=== PATIENT | male | born 1955 | race Caucasian/White ===

== ENCOUNTER 2023-01-11 16:14 | Observation (INO) | payer MEDICARE, MEDICAID ==
[~2023-01-11] VITALS: Ht 167.7 cm; Wt 77.2 kg
--- NOTE | 2023-01-11 16:35 | ED Fall/Injury ---
General Stated Complaint: FALL,CHEST PAIN,L HIP PAIN Source: patient, EMS Exam Limitations: no limitations History of Present Illness Date Seen by Provider: Jan 11, 2023 Time Seen by Provider: 16:18 Initial Comments 67-year-old male with past medical history most notable for diabetes coming in via EMS after he was just discharged from the senior living, had a split-second of chest pain making him fall down, landed on his left hip and since has had left hip pain. Did not hit his head, did not pass out, does not take blood thinners, no neck pain. Denies any weakness or numbness. Otherwise denying any other acute complaints. Denies any history of heart attack or stents in his heart, no DVT or PE history, no lower extremity swelling or pain, no recent surgery. Allergies and Home Medications Allergies Coded Allergies: No Known Drug Allergies (Unverified , 01/11/23) Patient Home Medication List Home Medication List Reviewed: Yes Review of Systems Review of Systems Constitutional: No fever Eyes: No Symptoms Reported Ears, Nose, Mouth, Throat: no symptoms reported Respiratory: no symptoms reported Cardiovascular: see HPI Gastrointestinal: no symptoms reported Genitourinary: no symptoms reported Musculoskeletal: see HPI Skin: no symptoms reported Psychiatric/Neurological: No Symptoms Reported Past Zlrgykx-Ppkitu-Mtlrrr Hx Patient Social History Tobacco Use?: No Substance use?: No Alcohol Use?: No Past Medical History Surgeries: Yes Orthopedic Physical Exam Vital Signs Vital Signs - First Documented 01/11/23 16:20 Temp 35.8 Pulse 74 Resp 16 B/P (MAP) 152/74 (100) Pulse Ox 97 O2 Delivery Room Air Capillary Refill : Height, Weight, BMI Height: '" Weight: lbs. oz. kg; BMI Method: General Appearance: WD/WN, no apparent distress HEENT: PERRL/EOMI, normal ENT inspection, pharynx normal Neck: non-tender, full range of motion, supple, normal inspection Cardiovascular: regular rate, rhythm, no edema, no murmur Respiratory: chest non-tender, lungs clear, normal breath sounds, no re spiratory distress, no accessory muscle use Gastrointestinal: normal bowel sounds, non tender, soft; No distended, No guarding, No rebound Back: normal inspection, no CVA tenderness, no vertebral tenderness Extremities: normal range of motion, normal inspection, no pedal edema, no calf tenderness, normal capillary refill, other (Lateral left hip pain to deep palpation) Neurologic/Psychiatric: no motor/sensory deficits, alert, normal mood/affect, oriented x 3 Skin: normal color, warm/dry Tylor Coma Score Best Eye Response: (4) Open Spontaneously Best Verbal Response: (5) Oriented Best Motor Response: (6) Obeys Commands Progress/Results/Core Measures Results/Orders Lab Results Laboratory Tests Test 01/11/23 16:21 01/11/23 16:29 Range/Units White Blood Count 10.7 4.3-11.0 10^3/uL Red Blood Count 4.60 4.30-5.52 10^6/uL Hemoglobin 12.1 L 13.3-17.7 g/dL Hematocrit 37 L 40-54 % Mean Corpuscular Volume 81 80-99 fL Mean Corpuscular Hemoglobin 26 25-34 pg Mean Corpuscular Hemoglobin Concent 33 32-36 g/dL Red Cell Distribution Width 15.2 H 10.0-14.5 % Platelet Count 441 H 130-400 10^3/uL Mean Platelet Volume 8.5 L 9.0-12.2 fL Immature Granulocyte % (Auto) 0 % Neutrophils (%) (Auto) 53 42-75 % Lymphocytes (%) (Auto) 30 12-44 % Monocytes (%) (Auto) 7 0-12 % Eosinophils (%) (Auto) 9 0-10 % Basophils (%) (Auto) 1 0-10 % Neutrophils # (Auto) 5.7 1.8-7.8 10^3/uL Lymphocytes # (Auto) 3.2 1.0-4.0 10^3/uL Monocytes # (Auto) 0.8 0.0-1.0 10^3/uL Eosinophils # (Auto) 1.0 H 0.0-0.3 10^3/uL Basophils # (Auto) 0.1 0.0-0.1 10^3/uL Immature Granulocyte # (Auto) 0.0 0.0-0.1 10^3/uL Prothrombin Time 13.7 12.2-14.7 SEC INR Comment 1.0 0.8-1.4 Activated Partial Thromboplast Time 27 24-35 SEC Sodium Level 134 L 135-145 MMOL/L Potassium Level 3.8 3.6-5.0 MMOL/L Chloride Level 98 98-107 MMOL/L Carbon Dioxide Level 24 21-32 MMOL/L Anion Gap 12 5-14 MMOL/L Blood Urea Nitrogen 16 7-18 MG/DL Creatinine 0.66 0.60-1.30 MG/DL Estimat Glomerular Filtration Rate 104 BUN/Creatinine Ratio 24 Glucose Level 265 H 70-105 MG/DL Calcium Level 9.3 8.5-10.1 MG/DL Corrected Calcium 9.9 8.5-10.1 MG/DL Magnesium Level 1.8 1.6-2.4 MG/DL Total Bilirubin 0.2 0.1-1.0 MG/DL Aspartate Amino Transf (AST/SGOT) 18 5-34 U/L Alanine Aminotransferase (ALT/SGPT) 31 0-55 U/L Alkaline Phosphatase 126 40-136 U/L Troponin I < 0.30 <0.30 NG/ML Pro-B-Type Natriuretic Peptide 1741.0 H <125.0 PG/ML Total Protein 7.2 6.4-8.2 GM/DL Albumin 3.2 3.2-4.5 GM/DL Glucometer 239 H 70-110 MG/DL My Orders Orders - CINDI BENJAMIN MD Chest 1 View Ap/Pa Only (01/11/23 16:31) Pelvis With Left Hip 2-3 View (01/11/23 16:31) Cbc With Automated Diff (01/11/23 16:31) Magnesium (01/11/23 16:31) Ekg Tracing (01/11/23 16:31) Comprehensive Metabolic Panel (01/11/23 16:31) Protime With Inr (01/11/23 16:31) Partial Thromboplastin Time (01/11/23 16:31) O2 (01/11/23 16:31) Monitor-Rhythm Ecg Trace Only (01/11/23 16:31) Ed Iv/Invasive Line Start (01/11/23 16:31) Troponin I Fs (01/11/23 16:31) Probnp Fs (01/11/23 16:31) Accucheck Stat ONCE (01/11/23 16:31) Ct Chest Wo (01/11/23 17:05) Ceftriaxone Iv/Im (Rocephin Iv/Im) (01/11/23 18:00) Doxycycline Hyclate Tablet (Vibramycin T (01/11/23 17:47) Vital Signs/I&O 01/11/23 16:20 Temp 35.8 Pulse 74 Resp 16 B/P (MAP) 152/74 (100) Pulse Ox 97 O2 Delivery Room Air Progress Progress Note : Progress Note 67-year-old male with above history coming in due to chest pain, subsequently having a fall and landing on his left side with left hip pain. ABCs were intact and vitals were stable on presentation. Physical exam with left hip lateral tenderness. EKG ordered and interpreted by me showing no STEMI. Chest x-ray with obvious right-sided pleural effusion and likely pneumothorax. CT scan then obtained on my interpretation has an obvious hydropneumothorax that is moderate. The pneumothorax portion of it is very mild. Would not need a chest tube at this time. He is not on oxygen. Basic labs obtained, white blood cell count normal, troponin negative, BNP elevated, creatinine normal. He was given ceftriaxone and doxycycline because of the likely infiltrate as well on CT scan. I am concerned that the patient is homeless, does not have transportation, and does not really have a phone if he were to worsen. Specifically, if his pneumothorax were to expand and he were to worsen, I would want him to be in a monitored setting since he does not have the ability to follow-up rapidly with anybody. I contacted Dr. Flores who will admit the patient under observation status. I then contacted Dr. VENEGAS for consultation if the patient were to worsen. Initial ECG Impression Date: Jan 11, 2023 Initial ECG Impression Time: 16:21 Initial ECG Rate: 73 Initial ECG Rhythm: Normal Sinus Comment Narrow QRS, normal axis, no significant ST changes, T wave inversions in the lateral leads which is nonspecific, no prior EKG to compare to Diagnostic Imaging Diagonstic Imaging: Xray (chest, pelvis, left hip), CT (CT chest) Comments [facility], [place] NAME: MIREILLE HUNT [facility] REC#: [id number] PT STATUS: REG ER : 1955 PHYSICIAN: CINDI BENJAMIN MD ADMIT DATE: 01/11/23/ER FS Draft Date of Exam:01/11/23 CHEST 1 VIEW AP/PA ONLY INDICATION: Chest pain with fall. TECHNIQUE: Single view chest, 4:44 p.m. CORRELATION STUDY: None. FINDINGS: Heart size is enlarged. Vascularity is slightly prominent. There is asymmetric dghfx-en-bplrqibl effusion at the right lung base along with atelectasis, infiltrate, and/or edema. Findings are positive for small right apical pneumothorax. IMPRESSION: 1. Nzahw-ox-cclogxgl right pleural effusion with small right apical pneumothorax. Given history, may very well be post-traumatic. Definitive displaced rib fracture is not demonstrated. If further assessment is desired, CT chest would be recommended. Likely associated atelectasis, infiltrate, and/or edema or perhaps contusion in the right lung base. CRITICAL FINDINGS Telephone call to the emergency department, Dr. Benjamin, at 5:02 p.m. Dictated on workstation # [id number] Dict: 01/11/23 165 Trans: 01/11/231714 [id number] Interpreted by: NILE YANG DO Electronically signed by: [facility] [place] [place] [facility] [id number] PT STATUS: REG ER : 1955 PHYSICIAN: CINDI BENJAMIN MD ADMIT DATE: 01/11/23/ER FS Signed Date of Exam:01/11/23 PELVIS WITH LEFT HIP 2-3 VIEW EXAMINATION: Left hip unilateral 2 or 3 views (w/pelvis when done) HISTORY: Hip injury COMPARISON: None available. FINDINGS: There is a right femur intramedullary nail. There are vascular calcifications bilaterally. No fracture. Alignment is normal. 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 IMPRESSION: 1. No fracture. Dictated by: Dictated on workstation # [id number] Dict: 01/11/23 170 Trans: 01/11/231712 [facility] [id number] Interpreted by: CHRISTIAN DERAS MD Electronically signed by: CHRISTIAN DERAS MD 01/11/231712 [facility] [place] [place] [facility] [id number] PT STATUS: REG ER : 1955 PHYSICIAN: CINDI BENJAMIN MD ADMIT DATE: 01/11/23/ER FS Draft Date of Exam:01/11/23 CT CHEST WO PROCEDURE: CT chest without contrast. TECHNIQUE: Multiple contiguous axial images were obtained through the chest without the use of intravenous contrast. Auto Exposure Controls were utilized during the CT exam to meet ALARA standards for radiation dose reduction. INDICATION: Pneumothorax, pain. COMPARISON: Radiographs from the same date. FINDINGS: Several calcified mediastinal and hilar lymph nodes are present. This includes a precarinal lymph node which is mildly enlarged measuring 1.3 cm in short dimension. No additional adenopathy identified within the chest. Scattered vascular calcifications, including advanced calcifications versus stents within the coronary arteries. The heart is within normal limits in size. No significant pericardial effusion. No left-sided pleural effusion. Moderate right-sided dependently layering pleural effusion is present with associated adjacent atelectasis and consolidation, particularly within the right lower lobe. Small right-sided pneumothorax is noted, particularly anteriorly. No left-sided pneumothorax. Calcified granuloma within the right upper lobe. 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 Calcified splenic granuloma. Small duodenal diverticulum. Chronic left-sided rib fracture. Scattered osseous degenerative changes without acute osseous abnormality. In particular, no definite acute displaced right-sided rib fracture. IMPRESSION: Moderate right-sided hydropneumothorax, with this predominantly being fluid with a small gas component present. This is associated with adjacent atelectasis and potentially infiltrate within the right lower lobe. Scattered degenerative changes without definite acute osseous abnormality. Porcelain gallbladder incidentally noted. Evidence of chronic granulomatous disease. This includes a precarinal lymph node which is mildly enlarged. Dictated on workstation # [id number] Dict: 01/11/23 1725 Trans: 01/11/23 1734 [facility] [id number] Interpreted by: GRACIE NEVAREZ MD Electronically signed by: Departure Impression Primary Impression: Hydropneumothorax Additional Impression: Pneumonia Qualified Codes: J18.9 - Pneumonia, unspecified organism Disposition: 30 STILL A PATIENT Condition: Stable Admissions Decision to Admit Reason: Admit from ER (General) Decision to Admit/Date: Jan 11, 2023 Time/Decision to Admit Time: 17:55 Transfer Transfer Facility: [facility] Method of Transfer: EMS CINDI BENJAMIN MD Jan 11, 2023 16:35
[2023-01-11 16:39] LABS: BASOPHILS # (AUTO) 0.1 10^3/uL (0.0-0.1); BASOPHILS % (AUTO) 1 % (0-10); EOSINOPHILS % (AUTO) 9 % (0-10); HEMATOCRIT 37 % (40-54); HEMOGLOBIN 12.1 g/dL (13.3-17.7); LYMPHOCYTES # (AUTO) 3.2 10^3/uL (1.0-4.0); LYMPHOCYTES % (AUTO) 30 % (12-44); MEAN CORPUSCULAR HEMOGLOBIN 26 pg (25-34); MEAN CORPUSCULAR HGB CONC 33 g/dL (32-36); MEAN CORPUSCULAR VOLUME 81 fL (80-99); MEAN PLATELET VOLUME 8.5 fL (9.0-12.2); MONOCYTES # (AUTO) 0.8 10^3/uL (0.0-1.0); MONOCYTES % (AUTO) 7 % (0-12); NEUTROPHILS # (AUTO) 5.7 10^3/uL (1.8-7.8); NEUTROPHILS % (AUTO) 53 % (42-75); PLATELET COUNT 441 10^3/uL (130-400); WHITE BLOOD COUNT 10.7 10^3/uL (4.3-11.0)
[2023-01-11 16:53] LABS: PROTHROMBIN TIME PATIENT 13.7 SEC (12.2-14.7)
[2023-01-11 17:02] LABS: ALANINE AMINOTRANSFERASE 31 U/L (0-55); ALKALINE PHOSPHATASE 126 U/L (40-136); BILIRUBIN,TOTAL 0.2 MG/DL (0.1-1.0); BUN/CREATININE RATIO 24; CALCIUM 9.3 MG/DL (8.5-10.1); CARBON DIOXIDE 24 MMOL/L (21-32); CHLORIDE 98 MMOL/L (98-107); CREATININE SERUM 0.66 MG/DL (0.60-1.30); GFR ESTIMATED 104; GLUCOSE 265 MG/DL (70-105); MAGNESIUM 1.8 MG/DL (1.6-2.4); POTASSIUM 3.8 MMOL/L (3.6-5.0); SODIUM 134 MMOL/L (135-145)
[2023-01-11 17:03] LABS: ALBUMIN 3.2 GM/DL (3.2-4.5); TOTAL PROTEIN 7.2 GM/DL (6.4-8.2)
--- NOTE | 2023-01-11 17:04 | Diagnostic Imaging Report ---
EXAMINATION: Left hip unilateral 2 or 3 views (w/pelvis when done) HISTORY: Hip injury COMPARISON: None available. FINDINGS: There is a right femur intramedullary nail. There are vascular calcifications bilaterally. No fracture. Alignment is normal. 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 IMPRESSION: 1. No fracture. Dictated by: Dictated on workstation # [id number]
--- NOTE | 2023-01-11 17:16 | Diagnostic Imaging Report ---
INDICATION: Chest pain with fall. TECHNIQUE: Single view chest, 4:44 p.m. CORRELATION STUDY: None. FINDINGS: Heart size is enlarged. Vascularity is slightly prominent. There is asymmetric jjihv-nf-vniuovxq effusion at the right lung base along with atelectasis, infiltrate, and/or edema. Findings are positive for small right apical pneumothorax. IMPRESSION: 1. Uoypc-ch-jhctdjcr right pleural effusion with small right apical pneumothorax. Given history, may very well be post-traumatic. Definitive displaced rib fracture is not demonstrated. If further assessment is desired, CT chest would be recommended. Likely associated atelectasis, infiltrate, and/or edema or perhaps contusion in the right lung base. CRITICAL FINDINGS Telephone call to the emergency department, Dr. Christie, at 5:02 p.m. Dictated by: Dictated on workstation # [id number]
--- NOTE | 2023-01-11 17:34 | Diagnostic Imaging Report ---
PROCEDURE: CT chest without contrast. TECHNIQUE: Multiple contiguous axial images were obtained through the chest without the use of intravenous contrast. Auto Exposure Controls were utilized during the CT exam to meet ALARA standards for radiation dose reduction. INDICATION: Pneumothorax, pain. COMPARISON: Radiographs from the same date. FINDINGS: Several calcified mediastinal and hilar lymph nodes are present. This includes a precarinal lymph node which is mildly enlarged measuring 1.3 cm in short dimension. No additional adenopathy identified within the chest. Scattered vascular calcifications, including advanced calcifications versus stents within the coronary arteries. The heart is within normal limits in size. No significant pericardial effusion. No left-sided pleural effusion. Moderate right-sided dependently layering pleural effusion is present with associated adjacent atelectasis and consolidation, particularly within the right lower lobe. Small right-sided pneumothorax is noted, particularly anteriorly. No left-sided pneumothorax. Calcified granuloma within the right upper lobe. 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 Calcified splenic granuloma. Small duodenal diverticulum. Chronic left-sided rib fracture. Scattered osseous degenerative changes without acute osseous abnormality. In particular, no definite acute displaced right-sided rib fracture. IMPRESSION: Moderate right-sided hydropneumothorax, with this predominantly being fluid with a small gas component present. This is associated with adjacent atelectasis and potentially infiltrate within the right lower lobe. Scattered degenerative changes without definite acute osseous abnormality. Porcelain gallbladder incidentally noted. Evidence of chronic granulomatous disease. This includes a precarinal lymph node which is mildly enlarged. Dictated by: Dictated on workstation # [id number]
[2023-01-11] MEDS ORDERED: DOXYCYCLINE 100 MG (VIBRAMYCIN) TABLET PO STA (17:47)
[2023-01-11] MEDS ORDERED: cefTRIAXone IV/IM 1,000 MG in NS (IVPB) 50 ML IV ONE (18:00)
[2023-01-11 19:42] VITALS: BP 193/93
[2023-01-11 21:01] VITALS: BP 152/74
[2023-01-11] MEDS ORDERED: RT-ALBUTEROL/IPRATROPIUM 3 ML (DUONEB) VIAL INH PRN (21:15)
[2023-01-11 22:00] VITALS: BP 160/94
[2023-01-11 23:21] VITALS: BP 141/65
[2023-01-11] MEDS ORDERED: ONDANSETRON 4 MG/2 ML (SDV) Z0FRAN IV PRN (23:45)
[2023-01-11] MEDS ORDERED: ACETAMINOPHEN 500 MG TAB (TYLENOL) PO PRN (23:45)
[2023-01-12 03:18] VITALS: BP 123/59
[2023-01-12] MEDS: CATHETER FLUSH 10 ML SYR IVP SCH ×3 (05:32→20:00)
[2023-01-12] MEDS: inSUlin ASPART (NovoLOG) 1 UNIT/0.01 ML (CHARGE PER UNIT) SC SCH ×4 (05:32→20:00)
[2023-01-12] MEDS: DOXYCYCLINE 100 MG (VIBRAMYCIN) TABLET PO SCH ×2 (05:35→17:17)
[2023-01-12 07:45] VITALS: BP 134/78
[2023-01-12] MEDS: lisINopril 20 MG (PRINIVIL) TABLET PO SCH (07:50)
--- NOTE | 2023-01-12 08:53 | Diagnostic Imaging Report ---
INDICATION: History of hydropneumothorax. COMPARISON: 01/11/2023 FINDINGS: Single frontal radiographic view of the chest was obtained and again demonstrates small right-sided hydropneumothorax. This appears stable compared to prior exam. Right basilar airspace disease persists. There is suggestion of 2.1 cm nodular opacity within the right base as well. Left lung remains clear. There is no large effusion or pneumothorax on the left. Cardiac silhouette and pulmonary vasculature are within normal limits. Osseous structures show no acute adverse interval changes. IMPRESSION: 1. Redemonstration with mild right-sided hydropneumothorax. 2. Bibasilar atelectasis and/or infiltrate. Additionally, there is 2.1 cm nodular opacity which may be on the basis of area of rounded atelectasis or pneumonia. Followup to resolution however is advised, as soft tissue nodule cannot be excluded. Dictated by: Dictated on workstation # [id number]
[2023-01-12] MEDS ORDERED: CEFD300C3 PO (11:05)
[2023-01-12] MEDS ORDERED: INSU100I48 SC (11:05)
[2023-01-12] MEDS ORDERED: INSU100I10 SC (11:05)
[2023-01-12] MEDS ORDERED: TMSL.4C PO (11:05)
[2023-01-12] MEDS ORDERED: CITA10TA9 PO (11:05)
[2023-01-12] MEDS ORDERED: DOXY-444 PO (11:05)
[2023-01-12] MEDS ORDERED: LISI20TA26 PO (11:05)
[2023-01-12] MEDS ORDERED: CARV6.252 PO (11:05)
[2023-01-12 11:51] VITALS: BP 136/66
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
--- NOTE | 2023-01-12 13:55 | Occ Therapy Progress Note ---
Therapy Progress Note Patient refused therapy and cursed OT out of the room. OT will attempt tomorrow. ENIO CARR OT Jan 12, 2023 13:55
--- NOTE | 2023-01-12 14:10 | Physical Therapy Evaluation ---
PT Evaluation-General Medical Diagnosis Admission Date Jan 11, 2023 at 19:23 Medical Diagnosis: fall/chest pain/left hip pain Onset Date: Jan 11, 2023 Therapy Diagnosis Therapy Diagnosis: debility Precautions Precautions/Isolations: Standard Precautions Referral Physician: Mark Reason for Referral: Evaluation/Treatment Medical History Pertinent Medical History: DM Additional Medical History bilateral toe amputations Current History EMS after being released from [facility]term and had a "split second" onset of chest pain and fell to the ground Social History Home: Current Living Status: Homeless (per report) Prior Prior Level of Function SCALE: Activities may be completed with or without assistive devices. 6-Dbcdgczynh-eichxig completes the activity by him/herself with no assistance from a helper. 5-Set-up or Clean-up Assistance-helper sets up or cleans up; patient completes activity. [place] assists only prior to or following the activity. 4-Supervision or Touching Assistance-helper provides verbal cues and/or touching/steadying and/or contact guard assistance as patient completes activity. Assistance may be provided throughout the activity or intermittently. 3-Partial/Moderate Assistance-helper does LESS THAN HALF the effort. [place] lifts, holds or supports trunk or limbs, but provides less than half the effort. 2-Substantial/Maximal Assistance-helper does MORE THAN HALF the effort. [place] lifts or holds trunk or limbs and provides more than half the effort. 8-Fqscedzjf-fwxedf does ALL the effort. Patient does none of the effort to complete the activity. Or, the assistance of 2 or more helpers is required for the patient to complete the activity. If activity was not attempted, code reason: 7-Patient Refused. 9-Not Applicable-not attempted and the patient did not perform the activity before the current illness, exacerbation or injury. 10-Not Attempted due to Environmental Limitations-(lack of equipment, weather restraints, etc.). 88-Not Attempted due to Medical Conditions or Safety Concerns. Bed Mobility: 6 Transfers (B,C,W/C): 6 Gait: 6 Indoor Mobility (Ambulation): Independent Prior Devices Use: Other-see list below Prior Device Use: cane PT Evaluation-Current Subjective Patient agrees to PT. Objective Patient Orientation: Normal For Age ROM/Strength ROM Lower Extremities bilateral LE WFL Strength Lower Extremities bilateral LE WFL Integumentary/Posture Bowel Incontinence: No Bladder Incontinence: No Posture WFL Neuromuscular (Tone, Coordination, Reflexes) grossly intact Sensory Vision: Functional Hearing: Functional Transfers Sit to Lying (QC): 6 Lying to Sitting/Side of Bed(Q: 6 Sit to Stand (QC): 6 Gait Mode of Locomotion: Walk Anticipated Mode of Locomotion: Walk Walk 10 feet (QC): 5 Walk 50 ft with 2 Turns(QC): 5 Walk 150 ft (QC): 5 Distance: >300' Gait Assistive Device: FWW Comments/Gait Description safe and functional with no deviation Balance Sitting Static: Normal Sitting Dynamic: Normal Standing Static: Normal Standing Dynamic: Normal Assessment/Needs Patient is currently at [facility] with all gross motor skills and does not require skilled PT intervention at this time. Rehab Potential: Fair PT Plan Treatment/Plan Treatment Plan: Discontinue PT Treatment Duration: Jan 12, 2023 Frequency: 1 time per week Estimated Hrs Per Day: .25 hour per day Time Time In: 1245 Time Out: 1300 DATE: Jan 12, 2023 Total Billed Treatment Time: 15 Total Billed Treatment 1 visit [facility] 15 min JIA JACKSON PT Jan 12, 2023 14:10
[2023-01-12 15:14] VITALS: BP 151/76
--- NOTE | 2023-01-12 17:47 | CONSULTATION REPORT ---
DATE OF SERVICE: 01/12/2023 ADMITTING PHYSICIAN: Dr. Kendra Flores. HISTORY OF PRESENT ILLNESS: The patient is a 67-year-old male who is somewhat of a poor historian; however, a good amount of the information was accrued on history and physical today. He states that he was recently in residential for approximately 1.5 weeks for unknown reasons and once released, he lost balance and fell on his left side with chief complaint being left hip pain. He was seen at [facility] emergency department where radiographic imaging was done and there was no fracture. The patient was found to have some consolidation of the lung consistent with pneumonia, but also a hydropneumothorax on the right side of unknown etiology. This appears to be small. Follow up with chest x-ray was done this morning, which did not show any changes. Upon further questioning, he reports that before this admission, he had also fallen at home due to loss of balance several times and this may have been a direct result of this. He also states again that before this admission, he did have other issues and was seen at [facility] and found to have necrotic toes as well as peripheral vascular disease and [facility] [place] and underwent amputation of left first and second toe as well as amputation of the right third toe. He also states he underwent aortogram with bilateral runoff and underwent angioplasty and stent placement of the left lower extremity. He is currently receiving IV antibiotics for the pneumonia and for monitoring the small hydropneumothorax on the right side. 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 The patient reports that he has had some issues with pain in the right upper abdominal quadrant as well as intermittent episodes of nausea and vomiting after eating meals. He is also weak and likely will need some form of inpatient rehabilitation as well. PAST MEDICAL HISTORY: Hypertension, hypercholesterolemia, diabetes, peripheral vascular disease, degenerative joint disease. PAST SURGICAL HISTORY: Right partial hip arthroplasty, aortogram with left lower extremity angioplasty and stent placement, amputation left toes 1 and 2 and amputation of toe 3 of the right foot. ALLERGIES: NO KNOWN DRUG ALLERGIES. MEDICATIONS: Carvedilol 6.25 mg b.i.d., cefdinir 300 mg b.i.d., citalopram 10 mg daily, doxycycline 100 mg b.i.d., glargine insulin 35 units each day at bedtime, lispro insulin 10 units q.a.c., lisinopril 20 mg daily, tamsulosin 0.4 mg daily. SOCIAL HISTORY: Previous smoke, quit several weeks ago, 40 pack years, negative alcohol. FAMILY HISTORY: Noncontributory. VITAL SIGNS: Temperature 36.5, blood pressure 151/76, pulse 60, respirations 18, pulse ox 94% on room air. REVIEW OF SYSTEMS: This is well-nourished male, currently in no acute distress. He is not experiencing any shortness of breath or difficulty in breathing. No chest pain, palpitations, diaphoresis. Intermittent episodes of nausea and vomiting after some types of foods that he eats with pain in the right upper abdominal quadrant. Does not report any issues with diarrhea, nor constipation as well as no red blood per rectum, nor any dark tarry stools. No fever, chills, no recent inadvertent weight loss. All other review of systems negative. PHYSICAL EXAMINATION: CHEST: Decreased breath sounds, right lung base with scattered wheezes and rhonchi bilaterally. HEART: Regular. No murmurs. EXTREMITIES: No lower extremity edema. Negative Homans sign with surgical amputation of toes 1 and 2 on the left and third toe on the right. HEENT: No scleral icterus. No cervical lymphadenopathy. ABDOMEN: Soft, nontender, nondistended. SKIN: Warm, dry. LABORATORY DATA: WBC 10.7, hemoglobin 12.1, hematocrit 37, platelets 441, BUN 16, creatinine 0.66. ROS and PE: A 67-year-old male with multiple medical problems that have gone untreated due to what appears to be some psychosocial issues. He does have hypertension, hypercholesterolemia, and insulin-dependent diabetes and also does have significant peripheral vascular disease and possibly coronary artery disease. The patient has had issues with balance and ambulation and has had multiple falls recently. On radiographic imaging, he did not have any fractures of his hip; however, was found to have a small hydropneumothorax on the right side, which on followup x-ray did not show any changes. At this time, he does not report any shortness of breath. Assesment/Plan: CT scan of the chest also was consistent with pneumonia. Diagnostic imaging also did show what appeared to be a porcelain gallbladder consistent with a chronic calculous cholecystitis. He does have some previous symptomatology from this. At this time, the patient also appears to be homeless. The care of this patient will likely need to be multidisciplinary. He will need to continue to be on antibiotics for the pneumonia as well as to allow for healing of the previous amputated toes. The patient will also need to increase strength and gait training with physical therapy as well as occupational therapy and may need inpatient rehabilitation as well. He does have what appears to be a chronic hydropneumothorax however, this is probably could have been several months ago. At this time, he is stable and we would only place a chest tube or drainage procedure if the effusion did increase over the size causing further compression of the lung and worsening shortness of breath. The patient also does have a chronic calculous cholecystitis and has been symptomatic in the past and if he continues to be symptomatic, which impedes with his eating and nutritional status, we would recommend a laparoscopic cholecystectomy. For now, we will just continue with antibiotics and medical management and continue to follow serial chest x-rays. Job ID: [id number] DocumentID: [id number] Dictated Date: 01/12/2023 16:59:48 Concrete Saw Operator Date: 01/12/2023 17:44:00 Dictated By: BRIAN VENEGAS MD MTDD
[2023-01-12] MEDS ORDERED: cefTRIAXone 1 GM/NS 50 ML IVPB IV SCH ×2 (18:00)
[2023-01-12 19:29] VITALS: BP 145/75
[2023-01-12] MEDS: CEFDINIR 300 MG (OMNICEF) CAP PO SCH (20:00)
[2023-01-12 23:13] VITALS: BP 102/54
[2023-01-13 03:32] VITALS: BP 131/73
[2023-01-13] MEDS: inSUlin ASPART (NovoLOG) 1 UNIT/0.01 ML (CHARGE PER UNIT) SC SCH ×4 (05:30→20:41)
[2023-01-13] MEDS: DOXYCYCLINE 100 MG (VIBRAMYCIN) TABLET PO SCH ×2 (05:33→17:10)
[2023-01-13] MEDS: CATHETER FLUSH 10 ML SYR IVP SCH ×3 (05:34→20:41)
[2023-01-13 07:56] VITALS: BP 179/85
--- NOTE | 2023-01-13 07:56 | Progress Note - Hospitalist ---
Subjective HPI/CC On Admission Date Seen by Provider: Jan 13, 2023 Pt is a 67yoCM with a PMH of DM who presented to the ER due to chest pain. [facility] and had a brief episode chest pain outside of the [facility] prompting him to seek evaluation in the ER. He states it resolved quickly on its own but was severe and caued him to fall over. He also reports he was recently admitted to [facility] in [place]. He knows that he has toes amputated but is unsure while. He also says he was supposed to have PICC line in for abx (presumably for his feet but he is not sure when asked specifically) but his PICC "fell out" and he was unable to get it replaced. He also is homeless and was unable to get home health or IV abx. He lives in his truck but his truck is currently impounded. Subjective/Events-last exam Pt reports doing well. No complaints. Asking for yogurt. Objective Exam Vital Signs Vital Signs Date Time Temp Pulse Resp B/P (MAP) Pulse Ox O2 Delivery O2 Flow Rate FiO2 01/13/23 03:32 36.6 69 18 131/73 (92) 95 Room Air 01/11/23 21:01 21 Capillary Refill : Less Than 3 Seconds General Appearance: No Apparent Distress, Chronically ill Respiratory: Lungs Clear, No Respiratory Distress Cardiovascular: Regular Rate, Rhythm, No Murmur Gastrointestinal: Normal Bowel Sounds, Soft Neurologic/Psychiatric: Alert, Oriented x3 Results/Procedures Lab Patient resulted labs reviewed. Imaging: Reviewed Imaging Report Assessment/Plan Assessment and Plan Assess & Plan/Chief Complaint hydropneumothorax Pneumonia Continue abx Surgery consulted, appreciate recs NIDDMII SSI Blood sugars within goal Toe amputation He is unsure of why - sounds like osteomyelitis Thinks he is supposed to be on abx States his PICC fell out and so he didn't continue IV abx student financial services counselor consulted to assist with placement, appreciate their assistance Diagnosis/Problems Diagnosis/Problems (1) Hydropneumothorax Status: Acute (2) Pneumonia Status: Acute Qualifiers: Pneumonia type: due to unspecified organism Laterality: right Lung loc ation: lower lobe of lung Qualified Codes: J18.9 - Pneumonia, unspecified organism Clinical Quality Measures AMI/AHF: ASA po Prior to arrival: LINA Amaya MD Jan 13, 2023 07:56
[2023-01-13] MEDS: TAMSULOSIN 0.4 MG (FLOMAX) CAP PO SCH (08:04)
[2023-01-13] MEDS: CEFDINIR 300 MG (OMNICEF) CAP PO SCH ×2 (08:04→20:40)
[2023-01-13] MEDS: lisINopril 20 MG (PRINIVIL) TABLET PO SCH (08:04)
--- NOTE | 2023-01-13 09:57 | Diagnostic Imaging Report ---
EXAMINATION: Chest 1 view HISTORY: Follow-up hydropneumothorax. COMPARISON: 01/12/2023. FINDINGS: Small right-sided hydropneumothorax is again seen with decrease in the pneumothorax portion. Hazy opacities are again seen in the right lung base. The left lung is clear. The heart size is stable. IMPRESSION: 1. Decreasing pneumothorax component of the small right-sided hydropneumothorax. Stable hazy opacities in the right lung base. Dictated by: Dictated on workstation # [id number]
[2023-01-13 11:16] VITALS: BP 143/83
--- NOTE | 2023-01-13 13:48 | Progress Note ---
Subjective Date Seen by a Provider: Jan 13, 2023 Time Seen by a Provider: 13:00 Subjective/Events-last exam doing well. no SOB. minimal cough, no sputum. tolerating diet. Objective Exam Vital Signs Date Time Temp Pulse Resp B/P (MAP) Pulse Ox O2 Delivery O2 Flow Rate FiO2 01/13/23 11:16 36.8 68 18 143/83 (103) 95 Room Air 01/13/23 08:00 Room Air 01/13/23 07:56 36.8 75 16 179/85 (116) 94 Room Air 01/13/23 03:32 36.6 69 18 131/73 (92) 95 Room Air 01/12/23 23:13 36.7 76 18 102/54 (70) 91 Room Air 01/12/23 20:08 Room Air 01/12/23 19:29 37.3 71 18 145/75 (98) 93 Room Air 01/12/23 15:14 36.5 68 18 151/76 (101) 94 Room Air I & O 01/13/23 07:00 Intake Total 2980 ml Output Total 3600 ml Balance -620 ml Capillary Refill : Less Than 3 Seconds General Appearance: No Apparent Distress HEENT: PERRL/EOMI Neck: Full Range of Motion Respiratory: Decreased Breath Sounds, Rhonci, Wheezing Cardiovascular: Regular Rate, Rhythm Gastrointestinal: normal bowel sounds, non tender, soft Extremity: Normal Capillary Refill Neurologic/Psychiatric: Alert Skin: Normal Color Lymphatic: No Adenopathy Results Lab Laboratory Tests 01/12/23 15:19: Glucometer 173H 01/12/23 19:36: Glucometer 204H 01/13/23 05:14: Glucometer 173H 01/13/23 11:13: Glucometer 194H Assessment/Plan Assessment/Plan Assess & Plan/Chief Complaint weakness, ataxia, fall with small chronic right hydropneumothorax. improving on f/u cxr. cont abx. cont ambulation and rehab. Clinical Quality Measures AMI/AHF: ASA po Prior to arrival: BRIAN Page MD Jan 13, 2023 13:48
[2023-01-13] MEDS: HYDROcodone/APAP 5 MG/325 MG (LORTAB) TAB PO PRN (14:45)
[2023-01-13] MEDS: HYPOCHLOROUS ACID/NaCl (VASHE) 250 ML IR PRN (14:47)
[2023-01-13 15:55] VITALS: BP 119/70
[2023-01-13 20:35] VITALS: BP 114/56
[2023-01-14] VITALS (8 sets, daily range): BP systolic 99–170; BP diastolic 55–91
[2023-01-14] MEDS: inSUlin ASPART (NovoLOG) 1 UNIT/0.01 ML (CHARGE PER UNIT) SC SCH ×4 (06:20→20:27)
[2023-01-14] MEDS: DOXYCYCLINE 100 MG (VIBRAMYCIN) TABLET PO SCH ×2 (06:20→18:20)
[2023-01-14] MEDS: CATHETER FLUSH 10 ML SYR IVP SCH ×3 (06:21→20:29)
[2023-01-14] MEDS: TAMSULOSIN 0.4 MG (FLOMAX) CAP PO SCH (08:29)
[2023-01-14] MEDS: CEFDINIR 300 MG (OMNICEF) CAP PO SCH ×2 (08:29→20:27)
[2023-01-14] MEDS: lisINopril 20 MG (PRINIVIL) TABLET PO SCH (08:29)
[2023-01-14] MEDS: HYDROcodone/APAP 5 MG/325 MG (LORTAB) TAB PO PRN (09:00)
--- NOTE | 2023-01-14 11:18 | Progress Note - Hospitalist ---
Subjective HPI/CC On Admission Date Seen by Provider: Jan 14, 2023 Pt is a 67yoCM with a PMH of DM who presented to the ER due to chest pain. He was recently release from [facility] and had a brief episode chest pain outside of the [facility] prompting him to seek evaluation in the ER. He states it resolved quickly on its own but was severe and caued him to fall over. He also reports he was recently admitted to [facility] in [place]. He knows that he has toes amputated but is unsure while. He also says he was supposed to have PICC line in for abx (presumably for his feet but he is not sure when asked specifically) but his PICC "fell out" and he was unable to get it replaced. He also is homeless and was unable to get home health or IV abx. He lives in his truck but his truck is currently impounded. Subjective/Events-last exam Pt repiorts doing well. No complaints. Awaiting information on [place] approval. Objective Exam Vital Signs Vital Signs Date Time Temp Pulse Resp B/P (MAP) Pulse Ox O2 Delivery O2 Flow Rate FiO2 01/14/23 08:20 Room Air 01/14/23 07:48 36.6 82 18 170/91 (117) 95 01/14/23 07:11 0.00 01/14/23 01:10 21 Capillary Refill : Less Than 3 Seconds General Appearance: No Apparent Distress, Chronically ill Respiratory: Lungs Clear, No Respiratory Distress Cardiovascular: Regular Rate, Rhythm, No Murmur Gastrointestinal: Normal Bowel Sounds, Soft Extremity: Other (surgical wound dressed) Neurologic/Psychiatric: Alert, Oriented x3 Results/Procedures Lab Patient resulted labs reviewed. Imaging: Reviewed Imaging Report Assessment/Plan Assessment and Plan Assess & Plan/Chief Complaint hydropneumothorax Pneumonia Continue abx Surgery consulted, appreciate recs NIDDMII SSI Blood sugars elevated yesterday so will resume Levemir but at lower than normal dose Toe amputation He is unsure of why - sounds like osteomyelitis Thinks he is supposed to be on abx States his PICC fell out and so he didn't continue IV abx vocational services specialist consulted to assist with placement, appreciate their assistance HTN Continue home meds Diagnosis/Problems Diagnosis/Problems (1) Hydropneumothorax Status: Acute (2) Pneumonia Status: Acute Qualifiers: Pneumonia type: due to unspecified organism Laterality: right Lung location: lower lobe of lung Qualified Codes: J18.9 - Pneumonia, unspecified organism Clinical Quality Measures AMI/AHF: ASA po Prior to arrival: LINA Amaya MD Jan 14, 2023 11:18
[2023-01-14] MEDS ORDERED: hydrALAZINE (APESOLINE) 20 MG/ML VIAL IV PRN (11:30)
[2023-01-14] MEDS: HYPOCHLOROUS ACID/NaCl (VASHE) 250 ML IR PRN (17:43)
[2023-01-15 03:26] VITALS: BP 124/69
[2023-01-15] MEDS: CATHETER FLUSH 10 ML SYR IVP SCH ×3 (06:19→20:56)
[2023-01-15] MEDS: DOXYCYCLINE 100 MG (VIBRAMYCIN) TABLET PO SCH ×2 (06:19→17:51)
[2023-01-15] MEDS: inSUlin ASPART (NovoLOG) 1 UNIT/0.01 ML (CHARGE PER UNIT) SC SCH ×4 (06:19→20:55)
[2023-01-15 07:57] VITALS: BP 118/59
[2023-01-15] MEDS: lisINopril 20 MG (PRINIVIL) TABLET PO SCH (08:14)
[2023-01-15] MEDS: TAMSULOSIN 0.4 MG (FLOMAX) CAP PO SCH (08:14)
[2023-01-15] MEDS: CEFDINIR 300 MG (OMNICEF) CAP PO SCH ×2 (08:14→20:51)
--- NOTE | 2023-01-15 11:36 | Progress Note - Hospitalist ---
Subjective HPI/CC On Admission Date Seen by Provider: Jan 15, 2023 Pt is a 67yoCM with a PMH of DM who presented to the ER due to chest pain. [facility] and had a brief episode chest pain outside of the [facility] prompting him to seek evaluation in the ER. He states it resolved quickly on its own but was severe and caued him to fall over. He also reports he was recently admitted to [facility] in [place]. He knows that he has toes amputated but is unsure while. He also says he was supposed to have PICC line in for abx (presumably for his feet but he is not sure when asked specifically) but his PICC "fell out" and he was unable to get it replaced. He also is homeless and was unable to get home health or IV abx. He lives in his truck but his truck is currently impounded. Subjective/Events-last exam Pt reports doing ok. No complaints. Still awaiting insurance approval at [place]. Only requests is to get some jose crackers. Objective Exam Vital Signs Vital Signs Date Time Temp Pulse Resp B/P (MAP) Pulse Ox O2 Delivery O2 Flow Rate FiO2 01/15/23 08:00 Room Air 01/15/23 07:57 36.7 65 20 118/59 (78) 94 01/14/23 07:11 0.00 01/14/23 01:10 21 Capillary Refill : Less Than 3 Seconds General Appearance: No Apparent Distress, Chronically ill, Thin Respiratory: Lungs Clear, No Respiratory Distress Cardiovascular: Regular Rate, Rhythm, No Murmur Extremity: Other (dressing on surgical wound ) Neurologic/Psychiatric: Alert, Oriented x3 Results/Procedures Lab Patient resulted labs reviewed. Imaging: Reviewed Imaging Report Assessment/Plan Assessment and Plan Assess & Plan/Chief Complaint hydropneumothorax Pneumonia Continue abx Surgery consulted, appreciate recs Remains on room air NIDDMII SSI Blood sugars remain elevated, increase Levemir Toe amputation He is unsure of why - sounds like osteomyelitis Thinks he is supposed to be on abx States his PICC fell out and so he didn't continue IV abx disabilities services officer consulted to assist with placement, appreciate their assistance HTN Continue home meds BP well controlled DVT ppx: Lovenox Diagnosis/Problems Diagnosis/Problems (1) Hydropneumothorax Status: Acute (2) Pneumonia Status: Acute Qualifiers: Pneumonia type: due to unspecified organism Laterality: right Lung location: lower lobe of lung Qualified Codes: J18.9 - Pneumonia, unspecified organism Clinical Quality Measures AMI/AHF: ASA po Prior to arrival: LINA Amaya MD Jan 15, 2023 11:36
[2023-01-15 12:00] VITALS: BP 126/71
[2023-01-15] MEDS: ENOXAPARIN 40 MG/0.4 ML (LOVENOX) SYR SQ SCH (12:12)
[2023-01-15] MEDS: HYPOCHLOROUS ACID/NaCl (VASHE) 250 ML IR PRN (15:18)
[2023-01-15 16:19] VITALS: BP 124/67
[2023-01-15 19:58] VITALS: BP 121/66
[2023-01-15 23:36] VITALS: BP 115/64
[2023-01-16 03:42] VITALS: BP 114/70
[2023-01-16] MEDS: inSUlin ASPART (NovoLOG) 1 UNIT/0.01 ML (CHARGE PER UNIT) SC SCH ×4 (05:33→21:04)
[2023-01-16] MEDS: CATHETER FLUSH 10 ML SYR IVP SCH ×3 (05:55→21:04)
[2023-01-16 07:55] VITALS: BP 113/73
[2023-01-16] MEDS: lisINopril 20 MG (PRINIVIL) TABLET PO SCH (08:37)
[2023-01-16] MEDS: TAMSULOSIN 0.4 MG (FLOMAX) CAP PO SCH (08:37)
[2023-01-16] MEDS: CEFDINIR 300 MG (OMNICEF) CAP PO SCH ×2 (08:37→21:03)
[2023-01-16] MEDS: ENOXAPARIN 40 MG/0.4 ML (LOVENOX) SYR SQ SCH (11:55)
[2023-01-16 12:05] VITALS: BP 130/63
--- NOTE | 2023-01-16 15:39 | Progress Note - Hospitalist ---
Subjective HPI/CC On Admission Date Seen by Provider: Jan 16, 2023 Time Seen by Provider: 10:50 Pt is a 67yoCM with a PMH of DM who presented to the ER due to chest pain. [facility] and had a brief episode chest pain outside of the [facility] prompting him to seek evaluation in the ER. He states it resolved quickly on its own but was severe and caued him to fall over. He also reports he was recently admitted to [facility] in [place]. He knows that he has toes amputated but is unsure while. He also says he was supposed to have PICC line in for abx (presumably for his feet but he is not sure when asked specifically) but his PICC "fell out" and he was unable to get it replaced. He also is homeless and was unable to get home health or IV abx. He lives in his truck but his truck is currently impounded. Subjective/Events-last exam He is laying in bed. He has no complaints. Objective Exam Vital Signs Vital Signs Date Time Temp Pulse Resp B/P (MAP) Pulse Ox O2 Delivery O2 Flow Rate FiO2 01/16/23 12:05 36.9 68 20 130/63 (85) 96 Room Air 01/15/23 15:35 0.00 01/14/23 01:10 21 Capillary Refill : Less Than 3 Seconds General Appearance: No Apparent Distress, WD/WN Respiratory: Lungs Clear, No Respiratory Distress Cardiovascular: Regular Rate, Rhythm, No Murmur Gastrointestinal: Normal Bowel Sounds, Soft Extremity: Normal Inspection, No Pedal Edema Neurologic/Psychiatric: Alert, Normal Mood/Affect Skin: Normal Color, Warm/Dry Results/Procedures Lab Patient resulted labs reviewed. Imaging: Reviewed Imaging Report Assessment/Plan Assessment and Plan Assess & Plan/Chief Complaint Hydropneumothorax Pneumonia Omnicef Surgery following Remains on room air NIDDMII SSI Levemir Toe amputation Likely due to osteomyelitis States his PICC fell out and so he didn't continue IV abx guest services attendant consulted to assist with placement, appreciate their assistance HTN Continue home meds BP well controlled DVT ppx: Lovenox Diagnosis/Problems Diagnosis/Problems (1) Hydropneumothorax Status: Acute (2) Pneumonia Status: Acute Qualifiers: Pneumonia type: due to unspecified organism Laterality: right Lung location: lower lobe of lung Qualified Codes: J18.9 - Pneumonia, unspecified organism (3) T2DM (type 2 diabetes mellitus) (4) HTN (hypertension) Status: Chronic (5) Toe amputee Status: Chronic Clinical Quality Measures AMI/AHF: ASA po Prior to arrival: RACHEL Mcknight MD Jan 16, 2023 15:39
[2023-01-16 15:46] VITALS: BP 117/64
[2023-01-17] MEDS: inSUlin ASPART (NovoLOG) 1 UNIT/0.01 ML (CHARGE PER UNIT) SC SCH ×2 (05:36→13:11)
[2023-01-17] MEDS: CATHETER FLUSH 10 ML SYR IVP SCH (05:36)
[2023-01-17 07:07] VITALS: BP 160/80
[2023-01-17] MEDS: lisINopril 20 MG (PRINIVIL) TABLET PO SCH (08:36)
[2023-01-17] MEDS: HYDROcodone/APAP 5 MG/325 MG (LORTAB) TAB PO PRN (08:36)
[2023-01-17] MEDS: CEFDINIR 300 MG (OMNICEF) CAP PO SCH (08:36)
[2023-01-17] MEDS: TAMSULOSIN 0.4 MG (FLOMAX) CAP PO SCH (08:36)
[2023-01-17] MEDS ORDERED: ATOR20TA66 PO (09:53)
[2023-01-17] MEDS: ENOXAPARIN 40 MG/0.4 ML (LOVENOX) SYR SQ SCH (13:11)
[2023-01-17 14:24] VITALS: BP 160/80
--- NOTE | 2023-01-17 18:05 | Discharge Summary ---
Discharge Summary Hospital Course Problems/Dx: (1) Hydropneumothorax Status: Acute (2) Pneumonia Status: Acute Qualifiers: Qualified Codes: J18.9 - Pneumonia, unspecified organism (3) T2DM (type 2 diabetes mellitus) (4) HTN (hypertension) Status: Chronic (5) Toe amputee Status: Chronic Hospital Course Date of Admission: Jan 11, 2023 at 19:23 Admission Diagnosis : Hydropneumothorax, pneumonia Family Physician/Provider: No,Local Physician Date of Discharge: 01/17/23 Discharge Diagnosis: Hydropneumothorax, pneumonia Hospital Course: Elpidio Schmitz is a 67 year old male who was admitted with pneumonia. He also had a hydropneumothorax which was likely chronic. Surgery was consulted and recommended conservative management. He received IV antibiotics and will continue oral antibiotics as an outpatient. He had a recent toe amputation likely due to osteomyelitis. He has diabetes. He needs to establish with a PCP and was referred to follow up with [facility] in [place]. He was discharged home in stable condition. Labs and Pending Lab Test: Laboratory Tests 01/16/23 20:50: Glucometer 275H 01/17/23 05:31: Glucometer 190H 01/17/23 11:18: Glucometer 187H Home Meds Active Atorvastatin Calcium 20 Mg Tablet 20 Mg PO HS 30 Days Reported Flomax (Tamsulosin HCl) 0.4 Mg Cap 0.4 Mg PO DAILY Lantus Solostar (Insulin Glargine,Hum.rec.anlog) 100 Unit/Ml (3 Ml) Insuln.pen 35 Units SC HS Citalopram HBr (Citalopram Hydrobromide) 10 Mg Tablet 10 Mg PO DAILY Insulin Lispro Kwikpen U-100 (Insulin Lispro) 100 Unit/Ml Insuln.pen 10 Units SC AC Carvedilol 6.25 Mg Tablet 6.25 Mg PO BID Lisinopril 20 Mg Tablet 20 Mg PO DAILY Cefdinir 300 Mg Capsule 300 Mg PO BID FILLED 01-11-2023 # DAY SUPPLY Assessment/Pt Instructions Take medications as prescribed. Establish with a PCP. Return with worsening shortness of breath, chest pain, or if you feel like you are getting worse. Discharge Planning: <30 minutes discharge planning Discharge Instructions Discharge Diet: No Restrictions Activity as Tolerated: Yes Consultations Surgery Discharge Physical Examination Vital Signs Vital Signs Date Time Temp Pulse Resp B/P (MAP) Pulse Ox O2 Delivery O2 Flow Rate FiO2 01/17/23 14:24 36.8 73 18 160/80 94 Room Air 0.00 01/14/23 01:10 21 General Appearance: No Apparent Distress, Chronically ill Respiratory: Lungs Clear, No Respiratory Distress Cardiovascular: Regular Rate, Rhythm, No Murmur Gastrointestinal: Normal Bowel Sounds, Soft Extremity: No Pedal Edema; No Inflammation Skin: Normal Color, Warm/Dry Neurologic/Psychiatric: Alert, No Motor/Sensory Deficits Allergies: Coded Allergies: No Known Drug Allergies (Unverified , 01/11/23) Copy Copies To 1: [facility] Discharge Summary Date of Admission Jan 11, 2023 at 19:23 Date of Discharge Jan 17, 2023 at 14:20 Discharge Date: Jan 17, 2023 Discharge Time: 14:20 Admission Diagnosis hydropneumothorax Consults/Procedures Consulations Surgery Discharge Diagnosis Hydropneumothorax Pneumonia NIDDMII Toe amputation HTN (1) Hydropneumothorax Status: Acute (2) Pneumonia Status: Acute Qualifiers: Qualified Codes: J18.9 - Pneumonia, unspecified organism (3) T2DM (type 2 diabetes mellitus) (4) HTN (hypertension) Status: Chronic (5) Toe amputee Status: Chronic Clinical Quality Measures AMI/AHF: ASA po Prior to arrival: RACHEL Mcknight MD Jan 17, 2023 18:05
== END 2023-01-17 14:20 | disposition home or self-care (01) ==
LOC: ER FS 16:16 → 4TH 19:23 → UNDOADMOB 19:23 → 4TH 19:51 → UNDODISOB 01-17 14:20
PROVIDERS: ADMIT Family Medicine; ATTEND Internal Medicine
DX: J18.9 Pneumonia, unspecified organism (principal); J94.8 Other specified pleural conditions; E11.9 Type 2 diabetes mellitus without complications; I10 Essential (primary) hypertension; K80.10 Calculus of gallbladder with chronic cholecystitis without obstruction; Z79.4 Long term (current) use of insulin; Z89.411 Acquired absence of right great toe; Z89.421 Acquired absence of other right toe(s); Z87.891 Personal history of nicotine dependence
CPT/HCPCS: 36415; 71045; 71250; 73502; 80053; 82947; 83735; 83880; 84484; 85025; 85610; 85730; 93005; 93041; 93306; 94760; 96366; 96372; G0378